=== PATIENT | male | born 1950 | race Caucasian/White ===

== ENCOUNTER → 2017-04-28 | Outpatient (CLI) | payer OTHER, SELFPAY ==
--- NOTE | 2017-04-28 14:26 | CT ---
EXAM DESCRIPTION: Lumbar Spine CLINICAL HISTORY: LUMBAR RADICULOPATHY M54.16 COMPARISON: None Available. TECHNIQUE: Multiple axial images of the lumbar spine without contrast. Multiplanar reformatted images. This exam was performed according to our departmental dose-optimization program, which includes automated exposure control, adjustment of the mA and/or kV according to patient size and/or use of iterative reconstruction technique. FINDINGS: The designated L5-S1 disc space is on axial image 89. Minimal dextroconvex curvature of the lumbar spine. Vertebral body stature is maintained. There is no acute fracture or destructive osseous lesion. 2 hypodensities in the left kidney most consistent with cysts. Cholecystectomy clips. Mild atherosclerotic plaque in the abdominal aorta and its major branches. L1-2: Mild disc narrowing. Mild facet hypertrophy. Minimal posterior disc bulge with no spinal canal or neural foraminal stenosis. L2-3: Mild disc narrowing. Mild facet hypertrophy. 2 mm posterior disc bulge with mild spinal canal stenosis. Residual AP diameter of the canal measures 9 mm. Mild bilateral neural foraminal stenosis. L3-4: Mild disc narrowing. Moderate facet hypertrophy with ligamentum flavum thickening. 3 mm posterior disc osteophyte complex. Multifactorial moderate spinal canal stenosis is suspected with residual AP diameter of the canal measuring about 6 to 7 mm. Mild bilateral neural foraminal stenosis. L4-5: Mild posterior disc narrowing. Moderate facet hypertrophy with ligamentum flavum thickening. 3 mm posterior disc osteophyte complex with suspected moderate spinal canal stenosis. Residual AP diameter of the canal measures 6 to 7 mm. Severe right and moderate left neural foraminal stenosis. L5-S1: Severe disc narrowing. Moderate facet hypertrophy. Small disc osteophyte complex with moderate bilateral neural foraminal stenosis. No CT evidence for spinal canal stenosis. IMPRESSION: 1. Multilevel disc degeneration and facet degenerative changes throughout the lumbar spine. The findings are most pronounced at L4-L5 where there is suspected moderate spinal canal stenosis, severe right neural foraminal stenosis, and moderate left neural foraminal stenosis. 2. At L3-L4, there is suspected moderate spinal canal stenosis and mild bilateral neural foraminal stenosis. 3. Other findings as above. Electronically signed by: Saeed Medeiros MD 04/28/2017 2:25 PM CDT
--- NOTE | 2017-04-28 14:46 | CT ---
EXAM DESCRIPTION: Abdomen/Pelvis w/wo Contrast CLINICAL HISTORY: ABD PAIN. R10.9 COMPARISON: None. TECHNIQUE: CT of the abdomen and pelvis was performed before and after intravenous contrast. Multiple axial images and multiplanar reconstructions were generated. This exam was performed according to our departmental dose-optimization program, which includes automated exposure control, adjustment of the mA and/or kV according to patient size and/or use of iterative reconstruction technique. FINDINGS: Lung bases: The visualized lung bases are clear. Partially imaged cardiac pacemaker leads. Solid organs: Bilateral renal cysts. Cholecystectomy clips. The liver, spleen, pancreas, and adrenal glands are unremarkable. Gastrointestinal: The stomach and small intestine are unremarkable. Rare scattered colonic diverticulosis without CT evidence for diverticulitis. Appendectomy changes. No free fluid or free air. Vascular: Mild calcific plaque in the abdominal aorta and its major branches. Lymph nodes: No pathologically enlarged lymph nodes are present by CT size criteria. Musculoskeletal and soft tissues: No destructive osseous lesions are present. Multilevel degenerative changes in the lumbar spine. Small fat-containing right inguinal hernia. Urinary bladder and pelvic organs: The urinary bladder is normal. The prostate is borderline enlarged measuring 4.9 cm in short axis. IMPRESSION: 1. No acute abdominal or pelvic CT findings. 2. Rare colonic diverticulosis without CT evidence for diverticulitis. 3. Mild atherosclerosis. 4. Borderline prostatic enlargement. Recommend correlation with PSA and clinical evaluation. Electronically signed by: Saeed Medeiros MD 04/28/2017 2:45 PM CDT
== END | disposition home or self-care (01) ==
LOC: CT 13:17
PROVIDERS: ATTEND General Practice
DX: M54.16 Radiculopathy, lumbar region (principal)

== ENCOUNTER → 2018-05-09 | Outpatient (CLI) | payer MEDICARE, OTHER ==
--- NOTE | 2018-05-09 14:40 | CT ---
EXAM DESCRIPTION: Head w/wo Contrast: Computed Tomography. CLINICAL HISTORY: II63.9: Cerebral infarction, unspecified. COMPARISON: None. TECHNIQUE: Spiral -axial scans through the head and brain at 2.5 mm intervals, without and with nonionic IV contrast. Coronal and sagittal postcontrast 2.0 mm reconstructions. No adverse reactions. Total Exam DLP: 1504.95 mGy-cm. This exam was performed according to our departmental CT dose-optimization program which includes automated exposure control, adjustment of the mA and/or kV according to patient size and/or use of iterative reconstruction technique; to reduce radiation dose to as low as reasonably achievable (ALARA). FINDINGS: No hemorrhage. No mass-effect and no midline shift. Normal contrast enhancement. Normal chamberlain-white matter differentiation no abnormal radiodense material in the brain parenchyma. Vascular calcifications not present; physiologic calcifications in the pineal gland and choroid plexus. No effacement or displacement of the ventricles, CSF spaces, or subdural spaces. Normal contrast enhancement. No extra axial fluid collection or hemorrhage. No gross abnormalities of the bony calvarium. No unusual enhancement in the [place]. 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 Basilar artery and right posterior communicating arteries supply the right posterior cerebral artery. IMPRESSION: 1. No hemorrhage. No mass effect or midline shift.. Normal CT scan of the brain without and with IV contrast. 2. CT scans are insensitive for detecting small CVA's in the first 24 hours after onset. Evaluation of the brain stem is also limited. If symptoms persist, consider MRI scan of the brain with diffusion imaging. Electronically signed by: Austin Martell MD 05/09/2018 2:39 PM CDT
== END ==
LOC: CT 13:03
PROVIDERS: ATTEND General Practice
DX: I63.9 Cerebral infarction, unspecified (principal)